=== PATIENT | female | born 1980 | race Caucasian/White ===

== ENCOUNTER 2021-05-09 21:38 | Emergency (ER) | payer MEDICARE, OTHER ==
[~2021-05-09] VITALS: Ht 162.6 cm; Wt 80.0 kg
[2021-05-09 22:21] VITALS: BP 128/86
[2021-05-10] MEDS ORDERED: ACETAMINOPHEN 325MG TABLET PO ONE (00:15)
== END 2021-05-10 01:39 | disposition home or self-care (01) ==
LOC: ER 21:38
DX: M25.561 Pain in right knee (principal)
CPT/HCPCS: 36415; 73562; 81025; 84550; 99284

== ENCOUNTER 2023-05-22 05:50 | Emergency (ER) | payer MEDICAID, OTHER ==
[~2023-05-22] VITALS: Ht 162.6 cm; Wt 100.0 kg
[2023-05-22 05:50] VITALS: O2SAT 100
[2023-05-22 09:15] VITALS: BP 100/73; PULSE 105; RESP 15; TEMP 97.9
== END 2023-05-22 09:21 | disposition short-term general hospital (02) ==
LOC: ER 05:50
DX: O26.892 Other specified pregnancy related conditions, second trimester (principal); Z3A.27 27 weeks gestation of pregnancy; Z98.890 Other specified postprocedural states
CPT/HCPCS: 76815; 99285